=== PATIENT | female | born 1970 | race Caucasian/White ===

== ENCOUNTER 2021-11-07 07:48 | Emergency (ER) | payer OTHER ==
[~2021-11-07 07:48] MED LIST: PREDNISONE20 MG PO
[2021-11-07 08:50] LABS: HEMOGLOBIN 15.4 gm/dl (12.3-15.3); RED BLOOD COUNT 5.13 M/UL (4.00-5.10); WHITE BLOOD COUNT 6.9 K/UL (4.5-11.0)
[2021-11-07 09:23] LABS: ADENOVIRUS F 40/41 Not Detected (Negative); ASTROVIRUS Not Detected (Negative); CAMPYLOBACTER Not Detected (Negative); E.COLI 0157 Not Detected (Negative); ENTAMOEBA HISTOLYTICA Not Detected (Negative); ENTEROAGGREGATIVE E.COLI (EAEC Not Detected (Negative); ENTEROPATHOGENIC E.COLI (EPEC) Not Detected (Negative); ENTEROTOXIGENIC E.COLI (ETEC) Not Detected (Negative); GIARDIA LAMBLIA Not Detected (Negative); NOROVIRUS GI/GII Not Detected (Negative); PLESIOMONAS SHIGELLOIDES Not Detected (Negative); ROTOVIRUS A Not Detected (Negative); SALMONELLA Not Detected (Negative); SAPOVIRUS Not Detected (Negative); SHIG/ENTEROINVAS.ECOLI (EIEC) Not Detected (Negative); SHIGA-LIK TOX.PRO.E.COLI (STEC Not Detected (Negative); VIBRIO Not Detected (Negative); VIBRIO CHOLERAE Not Detected (Negative); YERSINIA ENTEROCOLITICA Not Detected (Negative)
[2021-11-07 11:24] LABS: CLOSTRIDIUM DIFFICILE TOX A/B Not Detected (Negative); CRYPTOSPORIDIUM DETECTED (Negative)
[2021-11-07] MEDS ORDERED: ZOFRAN 4 MG TAB4 MG PO (11:50)
== END 2021-11-07 12:12 | disposition home or self-care (01) ==
LOC: ER1 07:48
PROVIDERS: Physician Assistant
DX: U07.1 COVID-19 (principal); A07.2 Cryptosporidiosis; F17.210 Nicotine dependence, cigarettes, uncomplicated; Z88.5 Allergy status to narcotic agent
CPT/HCPCS: 0240U; 80053; 81001; 82550; 82553; 83605; 83690; 83735; 84484; 85025; 87086; 87507; 96374; 99284; J2405; Q9967